=== PATIENT | male | born 1945 | race Caucasian/White ===

== ENCOUNTER 2019-05-01 17:21 | Emergency (ER) | payer OTHER ==
[~2019-05-01] VITALS: Ht 195.6 cm; Wt 90.7 kg
[~2019-05-01 17:21] MED LIST: FINA5TAB4 PO; FLUO-126 PO; TAMS0.4C36 PO; TRAZ50TA2 PO
[2019-05-01 19:00] VITALS: BP 144/69
== END 2019-05-01 21:48 | disposition home or self-care (01) ==
LOC: EDBD 17:21 → ER 17:43
DX: M19.90 Unspecified osteoarthritis, unspecified site (principal); W19.XXXA Unspecified fall, initial encounter; Y93.89 Activity, other specified; Y92.89 Other specified places as the place of occurrence of the external cause; Y99.8 Other external cause status; Z87.440 Personal history of urinary (tract) infections
CPT/HCPCS: 70450; 72125